=== PATIENT | female | born 1990 | race Caucasian/White ===

== ENCOUNTER 2020-01-08 20:40 | Emergency (ER) | payer BC, MEDICAID ==
[~2020-01-08] VITALS: Ht 177.8 cm; Wt 140.9 kg
[~2020-01-08 20:40] MED LIST: CYCL-35 PO; DIAZ-351 PO; IBUP200C5 PO; LEVA15HF4 INH; NITR100C6 PO; PROC5TAB56 PO
[2020-01-08 20:41] VITALS: BP 149/80
[2020-01-08] MEDS ORDERED: naproxen sodium 220mg tablet PO SCH (22:25)
[2020-01-08] MEDS ORDERED: metroNIDAZOLE 500mg tablet PO ONE (23:55)
[2020-01-08] MEDS ORDERED: METR-159 PO (23:58)
[2020-01-08] MEDS ORDERED: HYDR10FO2 VG (23:58)
== END 2020-01-09 00:16 | disposition home or self-care (01) ==
LOC: ER 20:41
DX: N76.0 Acute vaginitis (principal); Z98.890 Other specified postprocedural states; Z88.8 Allergy status to other drugs, medicaments and biological substances; Z88.0 Allergy status to penicillin; Z88.1 Allergy status to other antibiotic agents; Z88.6 Allergy status to analgesic agent
CPT/HCPCS: 87210; 99284; Q0112; J3490

== ENCOUNTER 2021-09-27 21:12 | Emergency (ER) | payer BC ==
[~2021-09-27] VITALS: Ht 177.8 cm; Wt 148.4 kg
[~2021-09-27 21:12] MED LIST changes: +HYDR10FO2 VG
[2021-09-27 22:00] LABS: BASOPHILS % (AUTO) 0.2 % (0-1); EOSINOPHILS # (AUTO) 0.2 X10'3 (0-0.9); EOSINOPHILS % (AUTO) 2.1 % (0-6); HEMATOCRIT 46.1 % (35.0-45.0); HEMOGLOBIN 15.4 g/dl (12.0-16.0); LYMPHOCYTES # (AUTO) 0.6 X10'3 (1.1-4.8); LYMPHOCYTES % (AUTO) 7.9 % (21-51); MEAN CORPUSCULAR HEMOGLOBIN 29.7 PG (27.0-31.0); MEAN CORPUSCULAR HGB CONC 33.4 g/dL (33.0-36.5); MEAN CORPUSCULAR VOLUME 88.8 FL (78-98); MEAN PLATELET VOLUME 8.7 FL (7.4-10.4); MONOCYTES # (AUTO) 0.5 X10'3 (0-0.9); MONOCYTES % (AUTO) 6.7 % (2-12); NEUTROPHILS # (AUTO) 6.2 X10'3 (1.8-7.7); NEUTROPHILS % (AUTO) 83.1 % (42-75); PLATELET COUNT 187 X10'3 (140-440); RED BLOOD COUNT 5.19 X10'6 (4.20-5.60); RED CELL DISTRIBUTION WIDTH 13.1 % (11.5-14.5); WHITE BLOOD COUNT 7.4 X10'3 (4.5-11.0)
[2021-09-27 22:15] LABS: ALANINE AMINOTRANSFERASE 39 U/L (12-78); ALBUMIN 3.8 G/DL (3.4-5.0); ALBUMIN/GLOBULIN RATIO 1.1 (1.1-1.5); ALKALINE PHOSPHATASE 72 IU/L (46-116); ANION GAP 11 (8-16); ASPARTATE AMINO TRANSFERASE 21 U/L (10-37); BILIRUBIN,TOTAL 0.8 MG/DL (0.1-1.0); BLOOD UREA NITROGEN 9 MG/DL (7-18); BUN/CREATININE RATIO 9.6 (6.6-38.0); CALCIUM 8.8 MG/DL (8.5-10.1); CHLORIDE 104 MMOL/L (99-107); CREATININE 0.94 MG/DL (0.40-0.90); GLUCOSE 92 MG/DL (70-104); SODIUM 139 MMOL/L (135-145); TOTAL CARBON DIOXIDE 24.5 MMOL/L (24-32); TOTAL PROTEIN 7.4 G/DL (6.4-8.2); eGFR 70 ML/MIN
[2021-09-27 22:29] LABS: MAGNESIUM 1.6 MG/DL (1.5-2.4)
[2021-09-27] MEDS ORDERED: normal saline 1000ML IV soln IVB ONE ×2 (23:10→23:25)
[2021-09-27] MEDS ORDERED: proCHLORperazine 10 MG/2 ml inj IV ONE (23:25)
[2021-09-27] MEDS ORDERED: LORazepam 2 mg/ml vial IV ONE (23:25)
[2021-09-27] MEDS ORDERED: ketorolac tromethamine 15mg/ml inj. IV ONE (23:25)
[2021-09-28 00:45] LABS: CLARITY,URINE SLIGHTLY CLOUDY (Clear); COLOR,URINE YELLOW (Yellow); GLUCOSE, URINE NEGATIVE (Neg); KETONES,URINE NEGATIVE (Neg); LEUKOCYTE ESTERASE ,URINE TRACE (Neg); NITRITES, URINE NEGATIVE (Neg); OCCULT BLOOD,URINE NEGATIVE (Neg); PROTEIN,URINE NEGATIVE (Neg); UROBILINOGEN,URINE 0.2 E.U/dL (0.2-1.0)
[2021-09-28 00:57] LABS: UA COLLECTION TYPE NON-SPECIFIED
[2021-09-28 00:59] LABS: BACTERIA,URINE 2+ /HPF (Neg); MUCUS STRANDS FEW /LPF (Neg); SQUAMOUS EPITHELIAL CELL,UR FEW /LPF (FEW)
[2021-09-28] MEDS ORDERED: ONDA4TAB12 PO (03:00)
[2021-09-28] MEDS ORDERED: ondansetron 4mg rapidly disintigrating tab PO ONE (03:00)
[2021-09-28] MEDS ORDERED: IBUP-1984 PO (03:00)
[2021-09-28] MEDS ORDERED: ACET-890 PO (03:00)
[2021-09-28] MEDS ORDERED: CEPH250T PO (03:20)
[2021-09-28 03:26] VITALS: BP 127/82
== END 2021-09-28 03:29 | disposition home or self-care (01) ==
LOC: ER 21:14
DX: R51.9 Headache, unspecified (principal); Z20.822 Contact with and (suspected) exposure to COVID-19; B34.9 Viral infection, unspecified; R11.0 Nausea; R50.9 Fever, unspecified; M54.2 Cervicalgia; Z88.0 Allergy status to penicillin; Z88.2 Allergy status to sulfonamides; Z88.8 Allergy status to other drugs, medicaments and biological substances; Z79.2 Long term (current) use of antibiotics; Z79.899 Other long term (current) drug therapy
CPT/HCPCS: 36415; 70450; 71045; 80053; 81001; 83605; 83735; 84145; 85025; 85651; 86140; 86618; 87040; 87088; 87502; 87503; 87635; 96361; 96374; 96375; 99285; C9803; J0780; J1885; J2060; J7030; 96365; 96366

== ENCOUNTER 2023-04-13 07:57 | Emergency (ER) | payer BC ==
[~2023-04-13] VITALS: Ht 177.8 cm; Wt 162.9 kg
[~2023-04-13 07:57] MED LIST changes: +ONDA4TAB12 PO
[2023-04-13 09:26] LABS: BILIRUBIN,URINE MODERATE (Neg); CLARITY,URINE CLOUDY (Clear); COLOR,URINE YELLOW (Yellow); GLUCOSE, URINE NEGATIVE (Neg); KETONES,URINE >=80 mg/dl (Neg); LEUKOCYTE ESTERASE ,URINE NEGATIVE (Neg); NITRITES, URINE NEGATIVE (Neg); OCCULT BLOOD,URINE TRACE-INTACT (Neg); PROTEIN,URINE TRACE mg/dl (Neg)
[2023-04-13] MEDS ORDERED: ketorolac trometh. 30mg/ml inj. IM STA ×2 (09:29→12:17)
[2023-04-13] MEDS ORDERED: meclizine 12.5mg tablet PO ONE ×2 (09:30→12:20)
[2023-04-13 09:31] LABS: URINE HCG NEGATIVE (NEG)
[2023-04-13 09:38] LABS: MUCUS STRANDS MANY /LPF (Neg); SQUAMOUS EPITHELIAL CELL,UR MANY /LPF (FEW)
[2023-04-13 09:39] LABS: BACTERIA,URINE 2+ /HPF (Neg); RBC,URINE 0-2 /HPF (0-2); WBC,URINE 50-100 /HPF (0-4)
[2023-04-13 09:40] LABS: UA COLLECTION TYPE VOIDED
[2023-04-13 10:21] LABS: BASOPHILS % (AUTO) 0.5 % (0-1); EOSINOPHILS # (AUTO) 0.3 X10'3 (0-0.9); EOSINOPHILS % (AUTO) 3.5 % (0-6); HEMOGLOBIN 14.5 g/dl (12.0-16.0); LYMPHOCYTES # (AUTO) 1.8 X10'3 (1.1-4.8); LYMPHOCYTES % (AUTO) 22.7 % (21-51); MEAN CORPUSCULAR HEMOGLOBIN 29.5 PG (27.0-31.0); MEAN CORPUSCULAR HGB CONC 33.8 g/dL (33.0-36.5); MEAN CORPUSCULAR VOLUME 87.3 FL (78-98); MEAN PLATELET VOLUME 8.7 FL (7.4-10.4); MONOCYTES # (AUTO) 0.8 X10'3 (0-0.9); MONOCYTES % (AUTO) 9.6 % (2-12); NEUTROPHILS # (AUTO) 5.1 X10'3 (1.8-7.7); NEUTROPHILS % (AUTO) 63.7 % (42-75); PLATELET COUNT 231 X10'3 (140-440); RED BLOOD COUNT 4.93 X10'6 (4.20-5.60); RED CELL DISTRIBUTION WIDTH 12.6 % (11.5-14.5)
[2023-04-13] MEDS ORDERED: acetaminophen 325mg tablet PO ONE (10:25)
[2023-04-13] MEDS ORDERED: normal saline 1000ml 1,000 ML IV ONE (10:25)
[2023-04-13 10:35] VITALS: BP 141/86; PULSE 63; O2SAT 100
[2023-04-13 11:44] LABS: ALANINE AMINOTRANSFERASE 36 U/L (12-78); ALBUMIN 3.8 G/DL (3.4-5.0); ALBUMIN/GLOBULIN RATIO 0.9 (1.1-1.5); ALKALINE PHOSPHATASE 97 IU/L (46-116); ANION GAP 13 (8-16); ASPARTATE AMINO TRANSFERASE 20 U/L (10-37); BILIRUBIN,TOTAL 0.6 MG/DL (0.1-1.0); BLOOD UREA NITROGEN 10 MG/DL (7-18); BUN/CREATININE RATIO 11.4 (10.0-20.0); CALCIUM 9.7 MG/DL (8.5-10.1); CHLORIDE 101 MMOL/L (99-107); CREATININE 0.88 MG/DL (0.40-0.90); GLUCOSE 76 MG/DL (70-104); POTASSIUM 3.9 MMOL/L (3.5-5.1); SODIUM 137 MMOL/L (135-145); TOTAL CARBON DIOXIDE 22.6 MMOL/L (24-32); TOTAL PROTEIN 7.9 G/DL (6.4-8.2); eCRCL 100 ML/MIN; eGFR 75 ML/MIN
[2023-04-13 11:51] LABS: LIPASE 38 U/L (16-77); MAGNESIUM 1.9 MG/DL (1.5-2.4); PRO BRAIN NATRIURETIC PEPTIDE 31 PG/ML (0-125)
--- NOTE | 2023-04-13 12:00 | NUR ---
PT REPORTS NAUSEA AND HEADACHE ARE BACK. FAMILY AT BEDSIDE.
--- NOTE | 2023-04-13 12:13 | NUR ---
DR RICE AT BEDSIDE
[2023-04-13] MEDS ORDERED: metoclopramide 10mg tablet PO STA (12:17)
[2023-04-13] MEDS ORDERED: diphenhydrAMINE 25mg capsule PO ONE (12:20)
[2023-04-13 12:44] VITALS: RESP 18
[2023-04-13] MEDS ORDERED: MECL-231 PO (13:09)
[2023-04-13] MEDS ORDERED: LORazepam 0.5 MG tablet PO PRN (13:25)
[2023-04-13 13:49] VITALS: TEMP 98.2
== END 2023-04-13 13:52 | disposition home or self-care (01) ==
LOC: ER 07:57
DX: R42 Dizziness and giddiness (principal); Z88.0 Allergy status to penicillin; Z88.8 Allergy status to other drugs, medicaments and biological substances; Z79.899 Other long term (current) drug therapy
CPT/HCPCS: 36415; 71045; 80053; 81001; 81025; 83690; 83735; 83880; 84484; 85025; 93005; 96360; 96361; 96372; 99285; J1885; J7030; J8597; Q0163; 99291

== ENCOUNTER 2023-11-29 08:50 | Emergency (ER) | payer BC ==
[~2023-11-29] VITALS: Ht 177.8 cm; Wt 121.5 kg
[~2023-11-29 08:50] MED LIST changes: +MECL-231 PO
[2023-11-29 09:01] VITALS: TEMP 97.8
[2023-11-29 09:04] LABS: BASOPHILS % (AUTO) 0.7 % (0-1); EOSINOPHILS # (AUTO) 0.1 X10'3 (0-0.9); EOSINOPHILS % (AUTO) 2.7 % (0-6); HEMOGLOBIN 14.5 g/dl (12.0-16.0); LYMPHOCYTES # (AUTO) 1.5 X10'3 (1.1-4.8); LYMPHOCYTES % (AUTO) 27.7 % (21-51); MEAN CORPUSCULAR HEMOGLOBIN 29.7 PG (27.0-31.0); MEAN CORPUSCULAR HGB CONC 32.9 g/dL (33.0-36.5); MEAN CORPUSCULAR VOLUME 90.2 FL (78-98); MEAN PLATELET VOLUME 8.6 FL (7.4-10.4); MONOCYTES # (AUTO) 0.5 X10'3 (0-0.9); MONOCYTES % (AUTO) 8.9 % (2-12); NEUTROPHILS # (AUTO) 3.2 X10'3 (1.8-7.7); PLATELET COUNT 205 X10'3 (140-440); RED BLOOD COUNT 4.88 X10'6 (4.20-5.60); RED CELL DISTRIBUTION WIDTH 13.2 % (11.5-14.5); WHITE BLOOD COUNT 5.3 X10'3 (4.5-11.0)
[2023-11-29 09:22] LABS: ALANINE AMINOTRANSFERASE 35 U/L (12-78); ALBUMIN 3.6 G/DL (3.4-5.0); ALKALINE PHOSPHATASE 79 IU/L (46-116); ASPARTATE AMINO TRANSFERASE 14 U/L (10-37); BILIRUBIN,TOTAL 0.9 MG/DL (0.1-1.0); BLOOD UREA NITROGEN 12 MG/DL (7-18); BUN/CREATININE RATIO 12.5 (10.0-20.0); CALCIUM 9.1 MG/DL (8.5-10.1); CREATININE 0.96 MG/DL (0.40-0.90); GLUCOSE 80 MG/DL (70-104); TOTAL CARBON DIOXIDE 28.9 MMOL/L (24-32); TOTAL PROTEIN 7.2 G/DL (6.4-8.2); eCRCL 92 ML/MIN; eGFR 68 ML/MIN
[2023-11-29 09:29] LABS: PRO BRAIN NATRIURETIC PEPTIDE 31 PG/ML (0-125)
[2023-11-29 09:55] LABS: URINE HCG NEGATIVE (NEG)
[2023-11-29 09:57] LABS: ANION GAP 6 (8-16); CHLORIDE 106 MMOL/L (99-107); POTASSIUM 3.7 MMOL/L (3.5-5.1); SODIUM 141 MMOL/L (135-145)
[2023-11-29 11:37] VITALS: BP 125/74; PULSE 72; RESP 14; O2SAT 100
[2023-11-30] MEDS ORDERED: LEVO-65 PO (09:24)
== END 2023-11-29 11:34 | disposition home or self-care (01) ==
LOC: ER 08:51
DX: R07.89 Other chest pain (principal); Z88.0 Allergy status to penicillin; Z88.2 Allergy status to sulfonamides; Z88.8 Allergy status to other drugs, medicaments and biological substances; Z79.899 Other long term (current) drug therapy; Z79.1 Long term (current) use of non-steroidal anti-inflammatories (NSAID); Z98.890 Other specified postprocedural states
CPT/HCPCS: 36415; 71045; 80053; 81025; 83880; 84484; 85025; 93005; 99285

== ENCOUNTER 2023-11-30 08:24 | Emergency (ER) | payer BC ==
[~2023-11-30] VITALS: Ht 177.8 cm; Wt 121.3 kg
[2023-11-30 08:37] VITALS: BP 119/68; PULSE 79; RESP 16; TEMP 97.3; O2SAT 95
[2023-11-30 08:47] LABS: BASOPHILS % (AUTO) 0.5 % (0-1); EOSINOPHILS # (AUTO) 0.2 X10'3 (0-0.9); EOSINOPHILS % (AUTO) 2.6 % (0-6); HEMOGLOBIN 15.3 g/dl (12.0-16.0); LYMPHOCYTES # (AUTO) 1.8 X10'3 (1.1-4.8); LYMPHOCYTES % (AUTO) 26.8 % (21-51); MEAN CORPUSCULAR HGB CONC 33.2 g/dL (33.0-36.5); MEAN CORPUSCULAR VOLUME 90.4 FL (78-98); MEAN PLATELET VOLUME 9.1 FL (7.4-10.4); MONOCYTES # (AUTO) 0.4 X10'3 (0-0.9); MONOCYTES % (AUTO) 6.3 % (2-12); NEUTROPHILS # (AUTO) 4.2 X10'3 (1.8-7.7); NEUTROPHILS % (AUTO) 63.8 % (42-75); PLATELET COUNT 216 X10'3 (140-440); RED BLOOD COUNT 5.08 X10'6 (4.20-5.60); RED CELL DISTRIBUTION WIDTH 13.2 % (11.5-14.5); WHITE BLOOD COUNT 6.5 X10'3 (4.5-11.0)
[2023-11-30 09:06] LABS: ALANINE AMINOTRANSFERASE 36 U/L (12-78); ALBUMIN 3.9 G/DL (3.4-5.0); ALKALINE PHOSPHATASE 86 IU/L (46-116); ANION GAP 8 (8-16); ASPARTATE AMINO TRANSFERASE 15 U/L (10-37); BILIRUBIN,TOTAL 0.9 MG/DL (0.1-1.0); BLOOD UREA NITROGEN 9 MG/DL (7-18); BUN/CREATININE RATIO 8.7 (10.0-20.0); CALCIUM 9.6 MG/DL (8.5-10.1); CHLORIDE 106 MMOL/L (99-107); CREATININE 1.03 MG/DL (0.40-0.90); GLUCOSE 83 MG/DL (70-104); POTASSIUM 3.5 MMOL/L (3.5-5.1); SODIUM 142 MMOL/L (135-145); TOTAL CARBON DIOXIDE 28.1 MMOL/L (24-32); TOTAL PROTEIN 7.7 G/DL (6.4-8.2); eCRCL 86 ML/MIN; eGFR 63 ML/MIN
[2023-11-30 09:13] LABS: PRO BRAIN NATRIURETIC PEPTIDE 36 PG/ML (0-125)
[2023-11-30] MEDS ORDERED: LEVO-65 PO (09:24)
== END 2023-11-30 10:06 | disposition home or self-care (01) ==
LOC: ER 08:24
DX: M54.50 Low back pain, unspecified (principal); N39.0 Urinary tract infection, site not specified; F17.210 Nicotine dependence, cigarettes, uncomplicated; Z20.822 Contact with and (suspected) exposure to COVID-19; Z88.0 Allergy status to penicillin; Z88.8 Allergy status to other drugs, medicaments and biological substances; Z79.899 Other long term (current) drug therapy; Z79.2 Long term (current) use of antibiotics; Z98.890 Other specified postprocedural states
CPT/HCPCS: 36415; 71045; 80053; 83880; 84484; 85025; 87811; 93005; 99285

== ENCOUNTER 2024-01-09 21:25 | Emergency (ER) | payer OTHER, BC ==
[~2024-01-09] VITALS: Ht 177.8 cm; Wt 123.6 kg
[~2024-01-09 21:25] MED LIST changes: +ONDA-243 PO; -ONDA4TAB12 PO
[2024-01-09 21:49] VITALS: BP 125/62; PULSE 83; TEMP 97.8; O2SAT 98
[2024-01-09 22:14] LABS: BASOPHILS % (AUTO) 0.6 % (0-1); EOSINOPHILS # (AUTO) 0.3 X10'3 (0-0.9); EOSINOPHILS % (AUTO) 3.3 % (0-6); HEMATOCRIT 38.9 % (35.0-45.0); LYMPHOCYTES % (AUTO) 24.2 % (21-51); MEAN CORPUSCULAR HEMOGLOBIN 30.6 PG (27.0-31.0); MEAN CORPUSCULAR HGB CONC 33.4 g/dL (33.0-36.5); MEAN CORPUSCULAR VOLUME 91.9 FL (78-98); MEAN PLATELET VOLUME 8.5 FL (7.4-10.4); MONOCYTES # (AUTO) 0.7 X10'3 (0-0.9); MONOCYTES % (AUTO) 8.1 % (2-12); NEUTROPHILS # (AUTO) 5.3 X10'3 (1.8-7.7); NEUTROPHILS % (AUTO) 63.8 % (42-75); PLATELET COUNT 224 X10'3 (140-440); RED BLOOD COUNT 4.23 X10'6 (4.20-5.60); RED CELL DISTRIBUTION WIDTH 13.9 % (11.5-14.5); WHITE BLOOD COUNT 8.3 X10'3 (4.5-11.0)
[2024-01-09 23:41] VITALS: RESP 16
[2024-01-10 00:32] LABS: BILIRUBIN,URINE NEGATIVE (Neg); CLARITY,URINE CLEAR (Clear); COLOR,URINE YELLOW (Yellow); GLUCOSE, URINE NEGATIVE (Neg); KETONES,URINE NEGATIVE (Neg); LEUKOCYTE ESTERASE ,URINE NEGATIVE (Neg); NITRITES, URINE NEGATIVE (Neg); OCCULT BLOOD,URINE NEGATIVE (Neg); PROTEIN,URINE NEGATIVE (Neg)
[2024-01-10 00:38] LABS: UA COLLECTION TYPE CLN CATCH MIDSTREAM
== END 2024-01-10 01:12 | disposition home or self-care (01) ==
LOC: ER 21:25
DX: O26.891 Other specified pregnancy related conditions, first trimester (principal); R10.9 Unspecified abdominal pain; O00.01 Abdominal pregnancy with intrauterine pregnancy; Z3A.01 Less than 8 weeks gestation of pregnancy; Z88.0 Allergy status to penicillin; Z88.2 Allergy status to sulfonamides; Z79.899 Other long term (current) drug therapy; Z98.890 Other specified postprocedural states
CPT/HCPCS: 36415; 76801; 81003; 84702; 85025; 86870; 86885; 86900; 86901; 86902; 86905; 99284